=== PATIENT | female | born 1985 | race Caucasian/White ===

== ENCOUNTER 2023-07-05 12:41 | Emergency (ER) | payer SELFPAY ==
[2023-07-05 13:03] VITALS: BP 114/80; PULSE 97; RESP 14; TEMP 36.8; O2SAT 99
--- NOTE | 2023-07-05 13:43 | ED_ITS ---
HPI - Abdominal Pain 2 General: Chief Complaint: Abdominal Pain Stated Complaint: back/side pain, chills, n/v Time Seen by Provider: 07/05/23 13:42 History of Present Illness: 37-year-old female comes in today for co mplaints of left flank pain and abdominal pain. Patient reports symptoms for last 2 days. Patient checked for a urinary tract infection yesterday but was negative test with only positive white blood cells. Patient did strip this morning that did come back positive for white blood cells and nitrates. Patient appears in moderate pain. Patient appears nontoxic. Patient reports no prior history of kidney stones. Patient is had a partial hysterectomy. Patient takes no routine medications. Associated Symptoms: Reports chills Review of Systems 2 General: Reports: 10 or more systems reviewed and unremarkable except in HPI and below Const: Reports: chills : Reports: flank pain Physical Exam 2 Const: COMMON NORMALS: alert HENMT: COMMON NORMALS: normocephalic HEAD & SCALP: normocephalic Neck/C-Spine: COMMON NORMALS: full ROM Resp: COMMON NORMALS: normal respiratory effort Cardio: COMMON NORMALS: regular rate RATE: regular rate GI: COMMON NORMALS: Soft to palpation PALPATION: Yes Soft to palpation : BLADDER/KIDNEY EXAM: Yes CVA tenderness on the left Back/Pelvis: GENERAL BACK: Yes CVA tenderness Extremity: COMMON NORMALS: normal to inspection Neuro: SENSORIUM/ORIENTATION: Yes alert Skin: COMMON NORMALS: turgor normal GENERAL SKIN EXAM: turgor normal Course 2 Vital Signs: Vital signs: Vital Signs Temperature 98.2 F 07/05/23 13:03 Pulse Rate 97 07/05/23 13:03 Respiratory Rate 14 07/05/23 13:03 Blood Pressure 114/80 07/05/23 13:03 Pulse Oximetry 99 07/05/23 13:03 Oxygen Delivery Me thod Room Air 07/05/23 13:03 MDM - Abdominal Pain Medical Decision Making 37-year-old female comes in today for complaints of left flank pain. On exam patient appears nontoxic. Patient appears in moderate pain. Patient has some left CVA tenderness on percussion. Vital signs are normal. Differential diagnosis includes pyelonephritis, urinary tract infection, renal calculi, constipation. CBC CMP was unremarkable. Urinalysis had a large amount of red blood cells and white blood cells. CT of the abdomen pelvis noted mild stranding of the left kidney and no signs of hydronephrosis. I believe the patient probably has a pyelonephritis. Will start her on cefdinir 300 twice a day for 5 days after an injection of Rocephin. Patient was also given 7 tablets of hydrocodone for her severe pain. Patient reports understanding of care plan need for follow-up or return to the ER. Lab Data 07/05/23 13:49 07/05/23 13:49 Labs/Radiology: Laboratory Results WBC 9.05 10^3/uL (3.29-11.43) 07/05/23 13:49 RBC 4.85 10^6/uL (3.85-5.65) 07/05/23 13:49 Hgb 14.70 g/dL (11.27-16.99) 07/05/23 13:49 Hct 43.3 % (36-47) 07/05/23 13:49 MCV 89.3 fl (85-98) 07/05/23 13:49 MCH 30.3 pg (27-33) 07/05/23 13:49 MCHC 33.9 g/dL (30-55) 07/05/23 13:49 RDW 11.9 % (12.1-15.1) L 07/05/23 13:49 Plt Count 256 10^3/cmm (157-399) 07/05/23 13:49 MPV 10.0 fL (7.4-10.4) 07/05/23 13:49 Neut % (Auto) 83.7 % 07/05/23 13:49 Lymph % (Auto) 9.2 % 07/05/23 13:49 [place] % (Auto) 6.1 % 07/05/23 13:49 Eos % (Auto) 0.4 % 07/05/23 13:49 Baso % (Auto) 0.4 % 07/05/23 13:49 Neut # (Auto) 7.57 10^3/uL (1.8-7.7) 07/05/23 13:49 Lymph # (Auto) 0.8 10^3/uL (0.8-4.8) 07/05/23 13:49 [place] # (Auto) 0.6 10^3/uL (0.2-0.9) 07/05/23 13:49 Eos # (Auto) 0.0 10^3/uL (0.0-0.8) 07/05/23 13:49 Baso # (Auto) 0.0 10^3/uL (0.0-0.1) 07/05/23 13:49 Nucleated RBC % (auto) 0 % 07/05/23 13:49 Nucleated RBCs # 0.0 /100WBC 07/05/23 13:49 Sodium 135 mmol/L (136-145) L 07/05/23 13:49 Potassium 4.4 mmol/L (3.5-5.1) 07/05/23 13:49 Chloride 99 mmol/L (98-107) 07/05/23 13:49 Carbon Dioxide 29 mmol/L (22-29) 07/05/23 13:49 Anion Gap 11.4 (5-19) 07/05/23 13:49 BUN 10 mg/dL (6-20) 07/05/23 13:49 Creatinine 0.7 mg/dL (0.5-0.9) 07/05/23 13:49 GFR Calculation 94.7 mL/min (90-130) 07/05/23 13:49 Glucose 94 mg/dL (65-115) 07/05/23 13:49 Calculated Osmolality 279 mOsm/kg (285-295) L 07/05/23 13:49 Calcium 8.8 mg/dL (8.5-10.5) 07/05/23 13:49 Total Bilirubin 0.7 mg/dL (0.15-1.2) 07/05/23 13:49 AST 16 U/L (0-32) 07/05/23 13:49 ALT 18 U/L (0-33) 07/05/23 13:49 Alkaline Phosphatase 81 U/L (35-105) 07/05/23 13:49 Total Protein 7.3 g/dL (6.6-8.7) 07/05/23 13:49 Albumin 4.1 g/dL (3.5-5.2) 07/05/23 13:49 Globulin 3.2 g/dL (1.3-4.6) 07/05/23 13:49 Lipase 21 U/L (13-60) 07/05/23 13:49 HCG, Qual Negative (Negative) 07/05/23 13:49 Urine Color Dark yellow (Yellow) 07/05/23 14:05 Urine Appearance Cloudy (CLEAR) A 07/05/23 14:05 Urine pH 6 (5-7) 07/05/23 14:05 Ur Specific [place] 1.020 (1.005-1.030) 07/05/23 14:05 Urine Protein 1+ (Negative) H 07/05/23 14:05 Urine Glucose (UA) Norm (Normal) 07/05/23 14:05 Urine Ketones Negative (Negative) 07/05/23 14:05 Urine Blood 3+ (Negative) H 07/05/23 14:05 Urine Nitrate Negative (Negative) 07/05/23 14:05 Urine Bilirubin Neg (Negative) 07/05/23 14:05 Urine Urobilinogen Neg mg/dL (Negative) 07/05/23 14:05 Ur Leukocyte Esterase 2+ (Negative) H 07/05/23 14:05 Urine RBC Too numerous to cnt /hpf (0-2) H 07/05/23 14:05 Urine WBC Too numerous to cnt /hpf (0-5) H 07/05/23 14:05 Ur Squamous Epith Cells 5-10 /hpf (0-5) H 07/05/23 14:05 Amorphous Sediment Not Reportable 07/05/23 14:05 Urine Bacteria 1+ /hpf (NONE) H 07/05/23 14:05 All radiology interpretation(s) finalized by discharge Discharge Plan Discharge Patient Disposition: Home Clinical Impression: Pyelonephritis Condition: Stable Prescriptions: New hydrocodone-acetaminophen 5-325 mg tablet 1 tab PO Q6H PRN (Reason: pain (scale score 7-10)) Qty: 7 0RF cefdinir 300 mg capsule 300 mg PO BID 5 Days Qty: 10 0RF Discharge Orders: Discharge ED (Routine); Ordered 07/05/23 Ordered By: Hunter Cortes Discharge Diet: Usual diet Discharge Activity: Increase activity as tolerated Patient Instructions: Kidney Infection (ED), Opioid Safety Activity Restrictions/Additional Instructions: Drink plenty water and fluids. Take medications as directed. Follow-up with primary care as needed. Return to ED for new concerns. Stand Alone Forms: Work/School Release Coding Level of Care Code ED Network Applications Specialist for Reji Orosco
[2023-07-05 13:57] LABS: Basophils % 0.4 %; Eosinophils % 0.4 %; Hematocrit 43.3 % (36-47); Lymphocytes # 0.8 10^3/uL (0.8-4.8); Lymphocytes % 9.2 %; Mean Corpuscular HGB Conc 33.9 g/dL (30-55); Mean Corpuscular Hemoglobin 30.3 pg (27-33); Mean Corpuscular Volume 89.3 fl (85-98); Monocytes # 0.6 10^3/uL (0.2-0.9); Monocytes % 6.1 %; Neutrophils # 7.57 10^3/uL (1.8-7.7); Neutrophils % 83.7 %; Nucleated Red Blood Cells % 0 %; Platelet Count 256 10^3/cmm (157-399); Red Blood Count 4.85 10^6/uL (3.85-5.65); Red Cell Distribution Width 11.9 % (12.1-15.1); White Blood Count 9.05 10^3/uL (3.29-11.43)
--- NOTE | 2023-07-05 13:57 | CT_ITS ---
WS: [id number] CT ABDOMEN PELVIS TECHNIQUE: Noncontrast CT of the abdomen and pelvis with coronal and sagittal reformatted images. CLINICAL INFORMATION: left flank pain, fever COMPARISON: None. DLP: 563.[address] scans at [facility] use at least one of these dose optimization techniques: automated e xposure control; mA and/or kV adjustment per patient size (includes targeted exams where dose is matc hed to clinical indication); or iterative reconstruction. FINDINGS: No obstructing renal or ureteral calculi. Inflammatory stranding and edema about the LEFT kidney susp icious for pyelonephritis on this noncontrast study. This could be due to a recently passed calculus. Minimal dilatation of the LEFT renal pelvis. A few nonobstructing LEFT calyceal tip calculi. Slight bibasilar atelectases. Normal noncontrast liver. Normal noncontrast spleen. Normal GE junction . Noncontrast pancreas appears normal. Normal noncontrast gallbladder. Adrenal glands are normal. Nor mal caliber abdominal aorta. Normal appendix in the RIGHT lower quadrant. No evidence of acute append icitis. Tiny fat-containing umbilical hernia. No free fluid in the pelvis. Mild disc bulging L4-L5 an d L5-S1. Retroverted uterus. Normal sigmoid colon. No evidence of small or large bowel obstruction. IMPRESSION: 1. No obstructing renal or ureteral calculi. 2. Inflammatory stranding and edema about the LEFT kidney suspicious for pyelonephritis on this nonc ontrast study. Minimal dilatation of the LEFT renal pelvis. 3. A few nonobstructing LEFT calyceal tip calculi. 4. No other acute findings.
[2023-07-05 14:18] LABS: Alanine Aminotransferase 18 U/L (0-33); Albumin Level 4.1 g/dL (3.5-5.2); Alkaline Phosphatase 81 U/L (35-105); Anion Gap 11.4 (5-19); Aspartate Amino Transferase 16 U/L (0-32); Blood Urea Nitrogen 10 mg/dL (6-20); Calcium 8.8 mg/dL (8.5-10.5); Carbon Dioxide 29 mmol/L (22-29); Chloride 99 mmol/L (98-107); Globulin 3.2 g/dL (1.3-4.6); Glomerular Filtration Rate 94.7 mL/min (90-130); Glucose 94 mg/dL (65-115); Lipase 21 U/L (13-60); Osmolality Calculated 279 mOsm/kg (285-295); Potassium 4.4 mmol/L (3.5-5.1); Sodium 135 mmol/L (136-145); Total Bilirubin 0.7 mg/dL (0.15-1.2); Total Protein 7.3 g/dL (6.6-8.7)
[2023-07-05 14:26] LABS: HCG, Serum Qual Negative (Negative)
[2023-07-05 14:51] LABS: Bilirubin Urine Neg (Negative); Blood Urine 3+ (Negative); Glucose Urine UA Norm (Normal); Ketones Urine Negative (Negative); Leukocyte Esterase Urine 2+ (Negative); Nitrate Urine Negative (Negative); Protein Urine 1+ (Negative); Urine Appearance Cloudy (CLEAR); Urine Color Dark Yellow (Yellow); Urobilinogen Urine Neg (Negative); pH Urine 6 (5-7)
[2023-07-05 14:52] LABS: Add Urine Microscopic? YES; RBC Urine TOO NUMEROUS TO CNT /hpf (0-2); WBC Urine TOO NUMEROUS TO CNT /hpf (0-5)
[2023-07-05 14:53] LABS: Add Urine Culture? Yes; Bacteria Urine 1+ /hpf
[2023-07-05] MEDS: ketorolac 30 mg/mL INJ IM (15:15)
[2023-07-05] MEDS: cefTRIAXone 1,000 MG in water for injection-sterile 2.1 ML 2.1 MG IM (15:15)
== END 2023-07-05 15:52 | disposition home or self-care (01) ==
PROVIDERS: Emergency Provider Nurse Practitioner Family
DX: N12 Tubulo-interstitial nephritis, not specified as acute or chronic (principal)
CPT/HCPCS: 36415; 74176; 80053; 81001; 83690; 84703; 85025; 87077; 87086; 87186; 96372; 99284; J0696; J1885

== ENCOUNTER → 2023-07-18 12:01 | Outpatient (BNVA) | payer MEDICAID, SELFPAY | PROVIDERS: Visit Provider Registered Nurse Neonatal Intensive Care | DX: R39.9 Unspecified symptoms and signs involving the genitourinary system (principal) | CPT/HCPCS: 81000; 87077; 87086; 87184 ==

== ENCOUNTER → 2023-07-21 13:04 | Outpatient (BNVA) | payer MEDICAID, SELFPAY | PROVIDERS: Visit Provider Obstetrics & Gynecology | DX: Z12.4 Encounter for screening for malignant neoplasm of cervix (principal) | CPT/HCPCS: 87624 ==

== ENCOUNTER 2024-01-07 21:57 | Emergency (ER) | payer OTHER, SELFPAY ==
--- NOTE | 2024-01-07 22:03 | ECG_ITS ---
[facility] Test Date: 2024-01-07 Pat Name: Court Faulkner Department: Room: Gender: [facility] T[facility]: : 1985 Requested By: Hunter Lim Order Number: [id number] Fulton MD: Alex Shetty M.D. Measurements Intervals [place] Rate: 82 P: 60 TN: 118 QRS: 94 QRSD: 86 T: 65 QT: 363 QTc: 424 Interpretive Statements SINUS RHYTHM WITH SHORT TN INTERVAL BORDERLINE RIGHT AXIS DEVIATION [QRS AXIS > 90] INTERPRETATION BASED ON A DEFAULT AGE OF 40 YEARS No previous ECG available for comparison Electronically Signed On 01-08-2024 22:51:08 CDT by Alex Shetty M.D. [id number]
[2024-01-07 22:10] VITALS: BP 121/81; PULSE 93; RESP 17; TEMP 36.6; O2SAT 99; BMI 24.1
[2024-01-07 22:15] VITALS: BP 124/80; RESP 16; O2SAT 98
--- NOTE | 2024-01-07 23:06 | ED_ITS ---
HPI - Dizziness General: Chief Complaint: Dizziness Stated Complaint: bug bite, n/dizzy light headed Time Seen by Provider: 01/07/24 22:48 History of Present Illness: HPI Narrative: 38-year-old female comes in today for co mplaints of bug bite to the right upper arm. Patient reports sleeping in a bedroom while on vacation in [facility] and having awakened with a insect bite. Patient reports increasing redness and swelling to the site since this morning. Patient got back home today and came to the ER for evaluation. Patient reports some dizziness and not feeling well. Related Data Previous Rx's Medication Instructions Recorded sulfamethoxazole 800 1 tab PO BID 7 days #14 tabs 07/18/23 mg-trimethoprim 160 mg tablet (Bactrim DS) cetirizine 10 mg tablet 10 mg PO BID #10 tabs 01/07/24 prednisone 20 mg tablet 20 mg PO DAILY 5 days #5 tabs 01/07/24 triamcinolone acetonide 0.1 % 1 applic topical TID #15 grams 01/07/24 topical cream Allergies Allergy/AdvReac Type Severity Reaction Status Date / Time No Known Allergies Allergy Verified 01/07/24 22:15 Review of Systems General: Reports: 10 or more systems reviewed and unremarkable except in HPI and below PFSH ED PFSH: Family History (Updated 07/21/23 @ 14:35 by Aurelia Samuel RN) Mother Colon cancer Uterine cancer Ovarian cancer Thyroid disease Stroke Brother Colon cancer Hypertension Grandfather Hyperlipidemia Hypertension Grandmother Thyroid disease Denies family history of Diabetes Heart disease Breast cancer Physical Exam Const: COMMON NORMALS: alert HENMT: COMMON NORMALS: normocephalic HEAD & SCALP: normocephalic Neck/C-Spine: COMMON NORMALS: full ROM Resp: COMMON NORMALS: normal respiratory effort Cardio: COMMON NORMALS: regular rate RATE: regular rate GI: COMMON NORMALS: Soft to palpation PALPATION: Yes Soft to palpation Extremity: COMMON NORMALS: full ROM NARRATIVE EXTREMITY EXAM: Patient has some redness and rough skin to the right upper arm approximately 4 cm circular. Neuro: SENSORIUM/ORIENTATION: Yes alert Skin: NARRATIVE SKIN EXAM: Red erythematous wheal right upper arm Course Vital Signs: Vital signs: Vital Signs Temperature 98 F 01/07/24 22:10 Pulse Rate 93 01/07/24 22:10 Respiratory Rate 17 01/07/24 22:10 Blood Pressure 121/81 01/07/24 22:10 Pulse Oximetry 99 01/07/24 22:10 Oxygen Delivery Me thod Room Air 01/07/24 22:10 MDM - Dizziness Medical Decision Making Patient comes in today for with a red wheal to the right upper arm where she suspects she was bit by a insect of some sort. Patient reports some tenderness and itching to the site. Patient does have some elevation of the skin with some clear vesicular formation. Differential diagnosis includes but not limited to local reaction to insect bite, contact dermatitis, cellulitis. Suspect patient has had a localized reaction to the insect bite. Recommended steroids and antihistamine. No signs of severe infection at this time. Patient reports understanding agreed to plan. No radiology studies performed this visit Discharge Plan Discharge Patient Disposition: Home Clinical Impression: Insect bite of right upper arm with local reaction Qualifiers: Encounter type: initial encounter Qualified Code(s): S40.861A - Insect bite (nonvenomous) of right upper arm, initial encounter Condition: Stable Prescriptions: New triamcinolone acetonide 0.1 % cream 1 applic topical TID Qty: 15 0RF prednisone 20 mg tablet 20 mg PO DAILY 5 Days Qty: 5 0RF cetirizine 10 mg tablet 10 mg PO BID Qty: 10 0RF No Action sulfamethoxazole-trimethoprim [Bactrim DS] 800-160 mg tablet 1 tab PO BID 7 Days Qty: 14 0RF Discharge Orders: Discharge ED (Routine); Ordered 01/07/24 Ordered By: Hunter Cortes Referrals: Quintin Cronin FNP [Primary Care Provider] - Discharge Diet: Usual diet Discharge Activity: Increase activity as tolerated Patient Instructions: Insect Bite or Sting (ED) Activity Restrictions/Additional Instructions: Thank you for choosing [facility] for your healthcare needs today. Please realize that you were seen in the emergency department and that we are providing you with an emergency medical screening exam and this may not be a complete and all exclusive of all testing and/or medical workup we may need to determine your element or severity of your illness. It is very important that you follow-up as instructed with your primary care provider or specialist for the additional evaluation and to discuss your medical treatment plan. You may return to the emergency department should you have concerns or if your condition changes or worsens in any way. Coding Level of Care Code ED Educational Sign Language Interpreter for Reji Orosco
[2024-01-07] MEDS: cetirizine 10 mg Tablet PO (23:27)
[2024-01-07] MEDS: dexamethasone 10 mg/mL INJ IM (23:27)
== END 2024-01-07 23:43 | disposition home or self-care (01) ==
PROVIDERS: Emergency Provider Nurse Practitioner Family; PCP Nurse Practitioner
DX: S40.861A Insect bite (nonvenomous) of right upper arm, initial encounter (principal); W57.XXXA Bitten or stung by nonvenomous insect and other nonvenomous arthropods, initial encounter
CPT/HCPCS: 93005; 96372; 99284; J1100